=== PATIENT | female | born 1940 | race Caucasian/White ===

== ENCOUNTER 2016-06-26 14:36 | Emergency (ER) | payer MEDICARE, OTHER ==
--- NOTE | 2016-06-26 15:44 | EDM.PDOC ---
ED HPI GENERAL MEDICAL PROBLEM - General Chief Complaint: General Stated Complaint: syncope Time Seen by Provider: 06/26/16 14:55 Source of Information: Reports: Patient, Family History Limitations: Reports: No Limitations - History of Present Illness INITIAL COMMENTS - FREE TEXT/NARRATIVE: Patient brought in by EMS after becoming unresponsive briefly at home. Recently diagnosed with stage 4 cervical cancer. First dose of Chemo given last Tuesday. Denies feeling poorly prior to incident. Has had copious amounts of vaginal drainage this past week after having [employer] exam that helped diagnose the primary site of the cancer. Prior to the drainage she had noted left leg swelling. This has improved significantly since the vaginal drainage started. Was seen at [facility] yesterday to rule out possible infection related to the drainage. [facility] determined that the drainage if from the cancer alone and is not due to infection. Drainage has been worse the last few days but otherwise patient says she has been feeling ok, even with the recent chemo. Both patient and daughter say that this morning was normal morning for patient otherwise. They deny fever/chills. No GI complaints. No SOB/Resp/CV/Neuro changes. Discharge has been non-bloody. Patient had been taking a shower due to the drainage being very active this morning when incident happened. She called for help and daughter came to bathroom. It was at that time patient had brief unresponsive episode. She was helped down and did not fall/strike head or any other part of body. Daughter says patient's eyes rolled back in head and she had some generalized twitching movements for 5-10 seconds. No history of similar episodes in past. By time patient was in ambulance she was fully awake and telling crew that she essentially felt fine and would like to go home. - Related Data Allergies Allergy/AdvReac Type Severity Reaction Status Date / Time No Known Allergies Allergy Verified 06/26/16 14:43 Home Meds: Home Meds Acetaminophen 500 mg PO Q4H PRN 06/26/16 [History] Dexamethasone 8 mg PO ASDIRECTED 06/26/16 [History] Docusate Sodium 100 mg PO DAILY PRN 06/26/16 [History] Ondansetron HCl [Zofran] 8 mg PO TID PRN 06/26/16 [History] Prochlorperazine Maleate [Compazine] 10 mg PO QID PRN 06/26/16 [History] guaiFENesin/Codeine Phosphate [Codeine-Guaifen 10-100 mg/5 ml] 10 ml PO Q6H PRN 06/26/16 [History] Past Medical History Cardiovascular History: Reports: Hypertension Oncologic (Cancer) History: Reports: Cervix Social & Family History - Tobacco Use Smoking Status *Q: Never Smoker Second Hand Smoke Exposure: Yes - Caffeine Use Caffeine Use: Reports: Coffee - Recreational Drug Use Recreational Drug Use: No ED ROS GENERAL - Review of Systems Review Of Systems: See Below Constitutional: Reports: No Symptoms. Denies: Fever, Chills, Malaise, Fatigue, Diaphoresis, Decreased Appetite, Weight Loss HEENT: Reports: No Symptoms Respiratory: Reports: No Symptoms Cardiovascular: Reports: No Symptoms GI/Abdominal: Reports: No Symptoms : Reports: Discharge (See HPI). Denies: Dysuria, Flank Pain, Hematuria, Pain , Urgency Musculoskeletal: Reports: No Symptoms Skin: Reports: No Symptoms Neurological: Reports: Syncope. Denies: Confusion, Dizziness, Headache, Numbness, Paresthesia, Pre-Existing Deficit, Tingling, Trouble Speaking, Difficulty Walking, Weakness, Change in Speech, Gait Disturbance Psychiatric: Reports: No Symptoms Hematologic/Lymphatic: Reports: Swollen Glands (has scattered swollen lymph nodes attributed to her cancer) ED EXAM, GENERAL - Physical Exam Exam: See Below Exam Limited By: No Limitations General Appearance: Alert, WD/WN, No Apparent Distress Eye Exam: Bilateral Eye: EOMI, PERRL Ears: Normal External Exam, Normal Canal Nose: Normal Inspection Throat/Mouth: Normal Inspection, Normal Lips, Normal Oropharynx, Normal Voice, No Airway Compromise Head: Atraumatic, Normocephalic Neck: Normal Inspection, Supple, Non-Tender, Full Range of Motion, Other (small left lymphnode noted) Respiratory/Chest: No Respiratory Distress, Lungs Clear, Normal Breath Sounds, No Accessory Muscle Use, Chest Non-Tender Cardiovascular: Normal Peripheral Pulses, Regular Rate, Rhythm, No Murmur, Other (left leg slightly swollen compared to left. See HPI) Peripheral Pulses: 2+: Radial (L), Radial (R), Dorsalis Pedis (L), Dorsalis Pedis (R) GI/Abdominal: Normal Bowel Sounds, Soft, Non-Tender, No Distention (Female) Exam: Deferred Rectal (Female) Exam: Deferred Back Exam: Normal Inspection. No: CVA Tenderness (L), CVA Tenderness (R), Muscle Spasm, Paraspinal Tenderness, Vertebral Tenderness Extremities: Normal Range of Motion, Non-Tender, Pedal Edema (See HPI, mild increase in circumference left compared to right. ). No: Leg Pain Neurological: Alert, Oriented, CN II-XII Intact, Normal Cognition, Normal Gait, Normal Reflexes, No Motor/Sensory Deficits Psychiatric: Normal Affect, Normal Mood Skin Exam: Warm, Dry, Intact, Normal Color Course - Vital Signs Last Recorded V/S: Last Vital Signs Temp 36.6 C 06/26/16 14:37 Pulse 82 06/26/16 15:09 Resp 16 06/26/16 15:09 BP 163/79 H 06/26/16 15:09 Pulse Ox 98 06/26/16 15:09 Orthostatic Blood Pressure [ 164/83 Standing] Orthostatic Blood Pressure [ 162/82 Sitting] Orthostatic Blood Pressure [ 163/69 Supine] - Orders/Labs/Meds Orders: Active Orders 24 hr Category Date Time Status Orthostatic Vital Signs [RC] ASDIRECTED Care 06/26/16 14:59 Active Labs: Laboratory Tests 06/26/16 06/26/16 Range/Units 14:45 14:45 WBC 4.6 (4.0-10.2) K/uL RBC 4.40 (3.77-5.09) M/uL Hgb 12.4 (11.7-15.5) g/dL Hct 37.5 (34.0-46.0) % MCV 85.2 (84.0-98.0) fL MCH 28.2 (28.2-33.3) pg MCHC 33.1 (31.7-36.0) g/dL RDW 13.3 (11.2-14.1) % Plt Count 258 (150-350) K/uL Neut % (Auto) 90.7 H (45.0-80.0) % Lymph % (Auto) 5.6 L (10.0-50.0) % [place] % (Auto) 2.2 (2.0-14.0) % Eos % (Auto) 1.3 (0.0-5.0) % Baso % (Auto) 0.2 (0.0-2.0) % Neut # (Auto) 4.20 (1.40-7.00) K/uL Lymph # (Auto) 0.26 L (0.50-3.50) K/uL [place] # (Auto) 0.10 (0.00-1.00) K/uL Eos # (Auto) 0.06 (0.00-0.50) K/uL Baso # (Auto) 0.01 (0.00-0.20) K/uL Sodium 135 L (136-145) mmol/L Potassium 3.9 (3.5-5.1) mmol/L Chloride 98 (98-107) mmol/L Carbon Dioxide 31.5 (21.0-32.0) mmol/L BUN 24 H (7-18) mg/dL Creatinine 0.95 (0.51-1.17) mg/dL Est Cr Clr Drug Dosing 38.61 mL/min Estimated GFR (MDRD) 57 mL/min Glucose 147 H (74-106) mg/dL Calcium 8.6 (8.5-10.1) mg/dL Total Bilirubin 0.4 (0.2-1.0) mg/dL AST 40 H (15-37) U/L ALT 24 (12-78) U/L Alkaline Phosphatase 77 (46-116) IU/L Total Protein 7.1 (6.4-8.2) g/dL Albumin 2.8 L (3.4-5.0) g/dL - Re-Assessments/Exams Free Text/Narrative Re-Assessment/Exam: 06/26/16 15:51 Exam non-focal. Orthostatics negative. Patient continued to feel well and be without complaint while being observed in ER. Able to stand and ambulate. CBC/Chem. Sodium one point under normal BUN just above normal. Glucose mildly elevated. Suspect vaso-vagal episode. Could be secondary to recent chemo and may also have component of mild dehydration. IV fluids started by EMS allowed to finish, 500ml infused. Plan is to let patient return home with daughter. Patient does have family living with her and helping care for her as she goes through treatment. They are to continue to watch for changes and will have her follow up as needed. Departure - Departure Time of Disposition: 16:15 Disposition: Home, Self-Care 01 Condition: good Clinical Impression: Vaso vagal episode, Cervical cancer, FIGO stage IVB - Discharge Information Forms: ED Department Discharge Additional Instructions: Watch for changes. Follow up as needed. - My Orders Last 24 Hours: My Active Orders 06/26/16 14:59 Orthostatic Vital Signs [RC] ASDIRECTED - Assessment/Plan Last 24 Hours: My Active Orders 06/26/16 14:59 Orthostatic Vital Signs [RC] ASDIRECTED
[2016-06-26 16:57] VITALS: BP 149/71
== END 2016-06-26 16:15 | disposition home or self-care (01) ==
LOC: SUPCPDRO 14:36 → LL.ED 14:36
DX: R55 Syncope and collapse (principal); C53.9 Malignant neoplasm of cervix uteri, unspecified; I10 Essential (primary) hypertension; Z79.899 Other long term (current) drug therapy
CPT/HCPCS: 36415; 80053; 85025; 99284